=== PATIENT | male | born 1980 | race Caucasian/White ===

== ENCOUNTER 2016-11-09 06:06 | Emergency (ER) | payer OTHER, MEDICAID ==
[~2016-11-09] VITALS: Ht 182.9 cm; Wt 98.0 kg
[2016-11-09 07:11] VITALS: BP 122/75
== END 2016-11-09 07:32 | disposition home or self-care (01) ==
LOC: ED 06:06
DX: J20.9 Acute bronchitis, unspecified (principal); Z79.899 Other long term (current) drug therapy
CPT/HCPCS: J7512; J7613; J7644; Q0092

== ENCOUNTER 2016-11-28 08:00 | Emergency (ER) | payer OTHER, MEDICAID ==
[~2016-11-28] VITALS: Ht 175.3 cm; Wt 98.9 kg
[2016-11-28 09:50] VITALS: BP 115/61
== END 2016-11-28 09:50 | disposition home or self-care (01) ==
LOC: ED 08:00
DX: J01.90 Acute sinusitis, unspecified (principal)

== ENCOUNTER 2017-05-26 08:17 | Emergency (ER) | payer OTHER, MEDICAID ==
[~2017-05-26] VITALS: Ht 175.3 cm; Wt 102.5 kg
[2017-05-26 08:26] VITALS: BP 119/73
== END 2017-05-26 08:59 | disposition home or self-care (01) ==
LOC: ED 08:17
DX: S80.11XA Contusion of right lower leg, initial encounter (principal); W22.03XA Walked into furniture, initial encounter; Y93.89 Activity, other specified; Y99.8 Other external cause status; Y92.89 Other specified places as the place of occurrence of the external cause
CPT/HCPCS: Q0092

== ENCOUNTER 2018-08-12 12:38 | Emergency (ER) | payer MEDICAID ==
[~2018-08-12] VITALS: Ht 177.8 cm; Wt 106.6 kg
[2018-08-12 13:48] VITALS: BP 125/64
== END 2018-08-12 13:48 | disposition home or self-care (01) ==
LOC: ED 12:38
DX: L30.9 Dermatitis, unspecified (principal)

== ENCOUNTER 2019-02-17 08:20 | Emergency (ER) | payer MEDICAID ==
[~2019-02-17] VITALS: Ht 167.6 cm; Wt 104.3 kg
[2019-02-17 08:47] VITALS: Ht 167.6 cm; Wt 104.3 kg
[2019-02-17 11:02] VITALS: BP 106/74
== END 2019-02-17 11:02 | disposition home or self-care (01) ==
LOC: ED 08:20
DX: S02.82XA Fracture of other specified skull and facial bones, left side, initial encounter for closed fracture (principal); X58.XXXA Exposure to other specified factors, initial encounter; Y93.89 Activity, other specified; Y92.89 Other specified places as the place of occurrence of the external cause; Y99.8 Other external cause status